=== PATIENT | female | born 1975 | race Caucasian/White ===

== ENCOUNTER 2016-09-30 11:19 | Emergency (ER) | payer MEDICAID ==
[~2016-09-30] VITALS: Ht 177.8 cm; Wt 104.3 kg
[~2016-09-30 11:19] MED LIST: AMOXICILLIN500 MG PO; BACTRIM DS 8001 TA1 PO; BACTRIM DS 8001 TAB PO; BENADRYL25 MG; BROMFED DM COU118 M1 PO; CLARITIN10 MG PO; EES400 MG PO; FLAGYL I.V.500 MG PO; FLAGYL500 MG PO; GYNODIOL1 MG PO; HYDROCODONE BIT1 T11 PO; KENALOG 0.5% OI15 GM PO; Lotrimin 1%15 GM PO; MOTRIN 800 MG E4 TAB PO; MOTRIN800 MG PO; NAPROSYN500 MG PO; NO DAILY MEDS; PROVENTIL0.09 MG/AC IH; PSEUDOPHEDRINE30 MG PO; TESSALON PERLE100 M1 PO; TRAMADOL HCL50 MG PO; TRIAMCINOLONE0.5% TP; ULTRAM50 MG PO; VICODIN 5/500 505 MG PO; ZITHROMAX Z PA250 MG PO; ZITHROMAX250 MG PO
[2016-09-30 11:36] VITALS: BP 125/75
[2016-09-30] MEDS ORDERED: AVPAK AZITHROM250 M1 PO (11:57)
[2016-09-30] MEDS ORDERED: ROBITUSSIN5 ML PO (12:16)
== END 2016-09-30 12:13 | disposition home or self-care (01) ==
LOC: ED 11:19
DX: J06.9 Acute upper respiratory infection, unspecified (principal); F17.200 Nicotine dependence, unspecified, uncomplicated; Z88.0 Allergy status to penicillin; Z88.6 Allergy status to analgesic agent

== ENCOUNTER 2017-10-01 17:45 | Emergency (ER) | payer MEDICAID ==
[~2017-10-01] VITALS: Ht 177.8 cm; Wt 113.4 kg
[~2017-10-01 17:45] MED LIST changes: +AVPAK AZITHROM250 M1 PO; +ROBITUSSIN5 ML PO
[2017-10-01 17:55] VITALS: BP 118/82
[2017-10-01] MEDS ORDERED: ALLEGRA-D 24 H1 EACH PO (18:08)
[2017-10-01] MEDS ORDERED: FLONASE ALLERG9.9 ML NAS (18:08)
== END 2017-10-01 18:47 | disposition home or self-care (01) ==
LOC: ED 17:45
DX: J06.9 Acute upper respiratory infection, unspecified (principal); F17.200 Nicotine dependence, unspecified, uncomplicated; Z88.1 Allergy status to other antibiotic agents; Z88.6 Allergy status to analgesic agent; Z88.0 Allergy status to penicillin; Z79.899 Other long term (current) drug therapy

== ENCOUNTER 2022-03-25 13:51 | Emergency (ER) | payer SELFPAY ==
[~2022-03-25] VITALS: Ht 170.2 cm; Wt 105.2 kg
[~2022-03-25 13:51] MED LIST changes: +ALLEGRA-D 24 H1 EACH PO; +FLONASE ALLERG9.9 ML NAS
[2022-03-25 14:04] VITALS: BP 138/84
== END 2022-03-25 16:16 | disposition left against medical advice (07) ==
LOC: ED 13:51
DX: U07.1 COVID-19 (principal); B34.9 Viral infection, unspecified; Z88.0 Allergy status to penicillin; Z88.8 Allergy status to other drugs, medicaments and biological substances

== ENCOUNTER 2022-07-24 12:54 | Emergency (ER) | payer OTHER ==
[~2022-07-24] VITALS: Ht 172.7 cm; Wt 99.8 kg
[2022-07-24 13:11] VITALS: BP 151/91
== END 2022-07-24 17:46 | disposition left against medical advice (07) ==
LOC: ED 12:54
DX: R11.0 Nausea (principal); R19.7 Diarrhea, unspecified